=== PATIENT | female | born 1940 | race Caucasian/White ===

== ENCOUNTER 2017-02-27 13:13 | Emergency (ER) | payer MEDICARE, BC ==
[~2017-02-27 13:13] MED LIST: AMBIEN10 MG PO; CALCIUM600 MG PO; CELEXA20 M1 PO; ELAVIL25 MG PO; FISH OIL 1,2001 CAP PO; GLIMEPIRIDE4 MG PO; KEFLEX500 M1 PO; LISINOPRIL-HC PO; LOW DOSE ASPIRI81 M1 PO; METFORMIN HCL1000 MG PO; MULTI-VITAMIN1 EAC2 PO; OMEPRAZOLE20 M2 PO; REMICADE100 MG/VIA IV; TOPROL-XL25 MG/TA5 PO; TRAMADOL HCL50 MG PO; VITAMIN D35000 UNIT PO
[2017-02-27] MEDS ORDERED: ULTRAM50 M1 PO (13:41)
[2017-02-27] MEDS ORDERED: HYZAAR 100-251 EACH PO (13:42)
[2017-02-27] MEDS ORDERED: AMBIEN10 M1 PO (13:42)
[2017-02-27] MEDS ORDERED: XALATAN2.5 M1 EACH EYE (13:43)
[2017-02-27] MEDS ORDERED: TRADJENTA5 M1 PO (13:43)
[2017-02-27] MEDS ORDERED: TOPROL XL50 M1 PO (13:43)
[2017-02-27] MEDS ORDERED: CELEXA20 M2 PO (13:43)
[2017-02-27] MEDS ORDERED: AMARYL4 M1 PO (13:43)
[2017-02-27] MEDS ORDERED: GLUCOPHAGE1000 M1 PO (13:43)
[2017-02-27] MEDS ORDERED: AMITRIPTYLINE H25 M1 PO (13:44)
[2017-02-27 14:28] LABS: BASO % 0.4 % (0-2); EOS % 5.3 % (0-7); EOSINOPHIL ABSOLUTE COUNT 0.5 tho/cmm (0.0-0.7); HCT-HEMATOCRIT 37.1 % (34.0-49.0); HGB-HEMOGLOBIN 12.6 gm/dl (12.0-15.5); IMMATURE GRANULOCYTES ABSOLUTE 0.01 tho/cmm (0-0.03); IMMATURE GRANULOCYTES PERCENT 0.1 % (0-0.3); LYMPH % 40.5 % (20-45); LYMPH ABSOLUTE COUNT 4.1 tho/cmm (0.8-4.5); MCV (MEAN CELL VOLUME) 91.4 fl (82.0-96.0); MEAN PLATELET VOLUME 8.8 cmc (9.4-12.4); MONO % 10.4 % (0-12); NEUTROPHIL ABSOLUTE COUNT 4.3 tho/cmm (1.6-8.0); NEUTROPHIL-AUTOMATED 4.3 tho/cmm (1.6-8.0); NEUTROPHILS % 43.3 % (40-80); PLATELET COUNT 337 tho/cmm (150-450); RED BLOOD COUNT 4.06 mil/cmm (4.00-5.20); RED CELL DISTRIBUTION WIDTH 13.3 % (12.4-16.4)
[2017-02-27 14:45] LABS: ANION GAP 11 mmol/L (0-20); BLOOD UREA NITROGEN 13 mg/dl (6-24); CALCIUM 9.8 mg/dl (8.5-10.5); CARBON DIOXIDE-VENOUS 29 mmol/L (22-32); CHLORIDE 99 mmol/l (96-110); CREATININE 0.67 mg/dl (0.50-1.10); GLUCOSE 81 mg/dL (70-110); SODIUM 135 mmol/L (135-145); eGFR VALUE FOR BLACK >90 mL/Min
== END 2017-02-27 15:31 ==
LOC: EDMED 13:13
PROVIDERS: Emergency Medicine
DX: I10 Essential (primary) hypertension (principal); R00.2 Palpitations; E11.9 Type 2 diabetes mellitus without complications; E78.5 Hyperlipidemia, unspecified; Z79.899 Other long term (current) drug therapy